=== PATIENT | female | born 1975 | race Caucasian/White ===

== ENCOUNTER 2017-02-26 18:57 | Emergency (ER) | payer BC, OTHER ==
[2017-02-26 19:45] LABS: RED BLOOD COUNT 4.82 M/UL (4.00-5.10)
[2017-02-26 20:05] LABS: BUN/CREATININE RATIO 10 (0-10)
== END 2017-02-27 00:30 | disposition home or self-care (01) ==
LOC: ER1 18:57
PROVIDERS: Student in an Organized Health Care Education/Training Program
DX: R51 Headache (principal); R07.9 Chest pain, unspecified; F41.9 Anxiety disorder, unspecified; M54.2 Cervicalgia; G89.29 Other chronic pain; R20.2 Paresthesia of skin; R06.02 Shortness of breath; R11.0 Nausea; K21.9 Gastro-esophageal reflux disease without esophagitis; F17.210 Nicotine dependence, cigarettes, uncomplicated; Z88.8 Allergy status to other drugs, medicaments and biological substances; Z79.899 Other long term (current) drug therapy
CPT/HCPCS: 36415; 70450; 71010; 72125; 80053; 81001; 82550; 82553; 83874; 84484; 84703; 85025; 85379; 87086; 93005; 96361; 96374; 96375; 99285; J1200; J2765; J7030